=== PATIENT | male | born 1985 | race Caucasian/White ===

== ENCOUNTER 2017-02-08 09:48 | Emergency (ER) | payer MEDICAID ==
[~2017-02-08] VITALS: Ht 175.3 cm; Wt 95.0 kg
[2017-02-08 09:51] VITALS: Ht 175.3 cm; Wt 95.0 kg
--- NOTE | 2017-02-08 10:32 | ERD ---
ER Documentation Chief Complaint Date/Time DATE: 02/08/17 TIME: 10:29 Chief Complaint RIGHT FOOT PAIN,SWELLING.MARSUDHEER DROPPED ON THE FOOT HPI 31-year-old male who presented emergency department for right foot pain and swelling. Stated that the piece of granite fell to his right foot while he was working at around 7 AM this morning. Denies headache, loss of consciousness, dizziness, blurry vision, changes in vision, photophobia, facial pain, ear pain, throat pain, difficulty swallowing, neck pain, shoulder pain, chest pain, cough, hemoptysis, abdominal pain, back pain, loss of appetite, nausea, vomiting, hematochezia, diarrhea, constipation, urinary symptoms, bladder and bowel incontinences, extremity weakness, numbness or tingling sensation,recent travel, recent exposure to illness, recent antibiotic use in the last 3 months, fever, chills. No known drug allergies. No past medical history. No surgical history. Social: Works as a construction equipment mechanic. Occasional drinks alcoholic beverages. Denies smoking, use of illegal drugs. ROS All systems reviewed and are negative except as per history of present illness. Medications Home Meds No Active Prescriptions or Reported Meds Allergies Allergies: Coded Allergies: No Known Drug Allergies (Verified Allergy, Mild, 06/24/10) PMhx/Soc History of Surgery: No Anesthesia Reaction: No Hx Neurological Disorder: No Hx Respiratory Disorders: No Hx Cardiac Disorders: No Hx Psychiatric Problems: No Hx Miscellaneous Medical Probl: No Hx Alcohol Use: No Hx Substance Use: No Hx Tobacco Use: No Smoking Status: Never smoker Physical Exam Vitals Vital Signs Date Time Temp Pulse Resp B/P Pulse Ox O2 Delivery O2 Flow Rate FiO2 02/08/17 09:51 99.1 108 18 130/83 98 Physical Exam CONSTITUTIONAL: Well-appearing; well-nourished; in no apparent distress. HEAD: Normocephalic; atraumatic. EYES: Conjunctiva clear, sclera non-icteric, EOM intact. PERRL Ears: Hearing intact. EACs clear, TMs non-bulging, non-inflamed, translucent & mobile, ossicles normal appearance, No obstructions, no erythema, no discharges Nose: No obstructions. No polyps. No external lesions. Mucosa non-inflamed. No external lesions, septum and turbinates normal. No rhinorrhea. No discharges. Frontal sinus is non-tender to palpation. Maxillary sinus is non-tender to palpation. MOUTH: Moist mucous membranes, no lesion, no obstructions, no vesicles, no thrush, patent airway Throat: Uvula in midline. Right tonsil is +1 with no erythema, no exudate. Left tonsil is +1 with no erythema, no exudate. Tolerating secretions well. Good gag reflex. Patent airway. Neck: Supple, without lesions, bruits, or adenopathy. No mass. Thyroid non- enlarged and non-tender to palpation. CHEST: Symmetrical chest. Respirations even and not labored. No retractions noted. CARDIOVASCULAR: Normal S1, S2. RRR. No murmurs, gallops. RESPIRATORY: Normal chest excursion with respiration; breath sounds clear and equal bilaterally; no wheezes, rhonchi, or rales. Breathing even and unlabored. Speaking in clear, full, and complete sentences w/ ease. ABDOMEN: Normal bowel sounds normal. Soft, round, non-distended, non-guarding, no tenderness, no rebound, no organomegaly, no masses, no pulsating abdominal mass. No hernia. No peritoneal signs. : No CVA tenderness. BACK: Symmetrical shoulder. Spine is midline without deformity, tenderness. No evidence of trauma or deformity. PELVIS: Stable pelvis. No evidence of trauma or deformity. MUSCULOSKELETAL: Normal gait and station. No misalignment, asymmetry, crepitation, defects, tenderness, masses, effusions, decreased range of motion, instability, atrophy or abnormal strength or tone in the head, neck, spine, ribs , pelvis or extremities except right foot has swelling with tenderness to palpation. Right foot is good pedal pulse. Right ankle is unremarkable. Right knee is unremarkable. Bilateral hips are stable and unremarkable. Left lower extremity is unremarkable. No calf tenderness. NEUROVASCULAR: Distal pulses are present. Pedal pulse are present, equal, and normal. Capillary refills are < 2 seconds. NEUROLOGIC: Alert and oriented x4. Speaks full and clear sentences. Cranial Nerves II-XII normal. Sensation to pain, touch, and proprioception normal. Grossly unremarkable. No neurologic deficits. Romberg test is negative. PSYCHOLOGICAL: The patients mood and manner are appropriate. No hallucinations , delusions. Not SI. Not HI. Has the capacity to decide for self SKIN: Normal for age and ethnicity; warm; dry; good turgor; no apparent lesions or exudates. No rashes, hives, discoloration. Intact. Results 24 hrs Current Medications Medications (Trade) Dose Ordered Sig/Nedra Route PRN Reason Start Time Stop Time Status Last Admin Dose Admin Acetaminophen/ Hydrocodone Bitart ([place] (10/325)) 1 tab ONCE ONCE PO 02/08/17 11:00 02/08/17 11:01 DC 02/08/17 10:56 Procedures/MDM Examination: Please see physical examination Disease process, medical treatment was explained to the patient and family member. They verbalized understanding and agreed with the diagnostic tests, medical treatment, and follow-up care. Radiology: X-ray of the right foot Findings: There are minimally displaced acute fractures of the second, third, and fourth metatarsals midshaft. No dislocation is identified. Bony mineralization is normal. There is no radiodense foreign body. Impression: Minimally displaced acute fractures of the second, third and fourth metatarsals, as above. Treatment: [place]. Posterior short leg splint. Crutches provided with crutch training. No neurovascular deficits prior to and after application of splint. Re-evaluation: Denies headache, dizziness, blurry vision, neck pain, shoulder pain, chest pain, back pain, abdominal pain, nausea, vomiting. No episode of emesis in the emergency department. Alert and oriented 4. Speaks full and clear sentences. Respirations even and unlabored. Lung sounds clear to auscultation. Active bowel sounds. There is no right upper/right lower/ epigastric/left upper/left lower abdominal tenderness and light and deep palpation. Negative on Rovsings sign. Negative Moody sign. Able to jump 5 times without developing right-sided abdominal pain. No peritoneal signs. No neurovascular deficits. No neurological deficits. Consultation: None. Differential diagnosis: Fracture versus dislocation versus displacement versus contusion versus sprain Medical decision m[age]-year-old male who presented emergency department for right foot pain and swelling. Stated that the piece of granite fell to his right foot while he was working at around 7 AM this morning. Patient's complaint, patient's history about his complaint, my physical findings, diagnostic test results, my reevaluation are consistent my final diagnosis of minimally displaced acute fractures of the second, third, and fourth metatarsals. Circulation sensation is intact. No neurovascular deficit. Case discussed with attending physician, Dr. Bertin Gallagher agreed with the medical decision making to discharge the patient and have the patient follow-up with an orthopedic doctor in the next 24-48 hours. Medications prescribed are the following: [place]. Motrin. Patient and family member are made aware of the side effects and adverse reactions of the medications prescribed. Instructed on when to seek emergent and medical attention in case allergic/anaphylactic reactions or severe side effects and or adverse reactions to medications. Patient and family member verbalized understanding. Patient instructed Instructed to follow-up with his PCP in 24-48 hours. PCP to refer patient to orthopedic doctor in the next 24 hours. Patient stated that he will make sure to see an orthopedic doctor in the next 24-48 hours. Instructed to Call 911 for chest pain, shortness of breath. Advised to come back here in ED as soon as possible for severity of symptoms which includes but not limited to: any new symptoms; shortness of breath/difficulty of breathing; cardiovascular changes; severe gastrointestinal symptoms; signs and symptoms of bleeding and or infection; signs of compartment syndrome/neurovascular changes; neurological changes/deficits. Patient and family member verbalized understanding. Upon discharge, patient is alert and oriented x 4, speaks full and clear sentences, denies pain, has no neurological deficits, has no neurovascular deficits, difficulty of breathing. Breathing even and unlabored. Lung sounds are clear to auscultation. Not in distress. Appears comfortable. Appears satisfied with care provided here in ED. Departure Diagnosis: Primary Impression: Foot pain Additional Impression: Metatarsal fracture Condition: Good Additional Instructions: Instructed to follow-up with his PCP in 24-48 hours. PCP to refer patient to orthopedic doctor in the next 24 hours. Patient stated that he will make sure to see an orthopedic doctor in the next 24-48 hours. Instructed to Call 911 for chest pain, shortness of breath. Advised to come back here in ED as soon as possible for severity of symptoms which includes but not limited to: any new symptoms; shortness of breath/difficulty of breathing; cardiovascular changes; severe gastrointestinal symptoms; signs and symptoms of bleeding and or infection; signs of compartment syndrome/neurovascular changes; neurological changes/deficits. Patient and family member verbalized understanding. FIOR ARRIOLA Feb 08, 2017 10:32
[2017-02-08] MEDS ORDERED: HYDROCODONE/APAP (10/325) TAB PO ONE (11:00)
--- NOTE | 2017-02-08 11:25 | RADRPT ---
PROCEDURE: XR Foot. CLINICAL INDICATION: Injury, pain TECHNIQUE: Three views of the right foot are available for review. COMPARISON: None available FINDINGS: There are minimally displaced acute fractures of the second third and fourth metatarsal mid shafts. No dislocation is identified. Bony mineralization is normal. There is no radiodense foreign body. IMPRESSION: 1. Minimally displaced acute fractures of the second, third and fourth metatarsals, as above. RPTAT: HDWR .Silvano Souza MD, MD Date Time Electronically viewed and signed by .Silvano Souza MD, MD on 02/08/2017 11:24 .R/
[2017-02-08] MEDS ORDERED: IBUP800T25 PO (12:04)
[2017-02-08] MEDS ORDERED: HYDR-902 PO (12:04)
== END 2017-02-08 12:23 | disposition home or self-care (01) ==
LOC: FTE 09:48
DX: S92.341A Displaced fracture of fourth metatarsal bone, right foot, initial encounter for closed fracture (principal); S92.321A Displaced fracture of second metatarsal bone, right foot, initial encounter for closed fracture; S92.331A Displaced fracture of third metatarsal bone, right foot, initial encounter for closed fracture; W20.8XXA Other cause of strike by thrown, projected or falling object, initial encounter; Y92.89 Other specified places as the place of occurrence of the external cause
CPT/HCPCS: 29505; 73630; Z7502; Z7610

== ENCOUNTER 2018-08-29 15:10 | Emergency (ER) | payer SELFPAY ==
[~2018-08-29] VITALS: Wt 89.0 kg
[~2018-08-29 15:10] MED LIST: HYDR-3980 PO; IBUP800T48 PO
[2018-08-29 15:16] VITALS: BP 153/74; PULSE 78; RESP 18
== END 2018-08-29 15:53 | disposition left against medical advice (07) ==
LOC: FTE 15:10
DX: Z53.21 Procedure and treatment not carried out due to patient leaving prior to being seen by health care provider (principal)